=== PATIENT | male | born 1945 | race Caucasian/White ===

== ENCOUNTER → 2017-01-29 | Outpatient (CLI) | payer OTHER ==
[~2017-01-29] MED LIST: ASPUNK PO; BROM0.07 TOP; FLVUNK PO; GATI0.5S TOP; HYDUNK PO; LPTUNK PO; LSNUNK PO; METH2.5T PO; MULT-506 PO; PRLSRUNK PO
[2017-01-29 13:58] LABS: BLOOD UREA NITROGEN 16 mg/dl (7-18); CALCIUM 8.7 mg/dl (8.5-10.1); CARBON DIOXIDE 26 mmol/L (21-32); CHLORIDE 103 mmol/L (98-107); CREATININE 1.02 mg/dl (0.60-1.40); GLUCOSE 98 mg/dl (70-99); POTASSIUM 3.7 mmol/L (3.5-5.1); SODIUM 135 mmol/L (136-145)
--- NOTE | 2017-01-30 14:27 | CODING QUERY NO DIAGNOSIS ---
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 Please assist us with providing a diagnosis/symptom for the test(s) below: A diagnosis/symptom was not documented on your Order. A valid diagnosis/symptom is required to bill all insurances. Please remember that we are unable to code a diagnosis of rule out, probable, possible, questionable, or suspected. Tests that require a diagnosis: DOS: 01/29/17 * ACETYLCHOLINE REC (AChR) MOD AB DIAGNOSIS: * PARTIAL RENAL PROFILE DIAGNOSIS: * MYASTHENIA GRAVIS PANEL DIAGNOSIS: Provider Signature: Date: Thank you Sandra Masters Health Information Management Once completed, please kindly fax back to [phone] For questions please call [phone]
[2017-02-02 06:18] LABS: ACETYLCHOLINE RECEP MODULATING 18; ANTI-STRIATED MUSCLE NEGATIVE (NEGATIVE); RECEPTOR BINDING AB <0.30 nmol/L
== END | disposition home or self-care (01) ==
LOC: C.LABBC 10:24
PROVIDERS: ATTEND Ophthalmology
DX: H53.2 Diplopia (principal); G70.00 Myasthenia gravis without (acute) exacerbation

== ENCOUNTER → 2017-02-06 | Outpatient (CLI) | payer OTHER ==
[~2017-02-06] MED LIST changes: +GADAVIST IV PRN
--- NOTE | 2017-02-06 09:50 | DIAGNOSTIC IMAGING REPORT ---
ORBITS FOR MRI HISTORY: Pre-MRI pre-MRI screening. COMPARISON: None. FINDINGS: There are no radiopaque foreign bodies identified within the orbits. IMPRESSION: No radiopaque foreign bodies identified within the orbits. The above report was generated using voice recognition software. It may contain grammatical, syntax or spelling errors. Electronically signed by: Bubba Trevino M.D. 02/06/2017 9:49 AM Dictated Date/Time: 02/06/2017 9:48 AM
--- NOTE | 2017-02-06 10:42 | DIAGNOSTIC IMAGING REPORT ---
MRI OF THE BRAIN WITHOUT AND WITH IV CONTRAST CLINICAL HISTORY: 4TH NERVE PALSY COMPARISON STUDY: No previous studies for comparison. TECHNIQUE: MRI of the brain was performed from the vertex to the skull base utilizing various T1 and T2 weighted sequences. Following the IV administration of 9.5 mL of Gadavist contrast, additional enhanced images were obtained. FINDINGS: Sagittal T1, axial diffusion, proton density and T2 weighted axial, coronal FLAIR, and pre and post axial T1-weighted images were acquired. These were supplemented with post gadolinium coronal T1 weighted images. No intra or extra-axial mass lesions are visualized. Axial diffusion-weighted images reveal no evidence of acute or subacute infarction. There is no evidence of ventricular dilatation. Proton density T2-weighted and FLAIR images reveal a few scattered foci of increased T2 signal within the white matter, likely on a small vessel basis. There are no abnormal flow voids. There is a suspected subtle left frontal developmental venous anomaly. IMPRESSION: 1. No acute intracranial findings. No evidence of intracranial mass. No evidence of acute or subacute infarction. Electronically signed by: James Bolaños M.D. 02/06/2017 10:41 AM Dictated Date/Time: 02/06/2017 10:37 AM
== END | disposition home or self-care (01) ==
LOC: C.MRIBC 09:24
PROVIDERS: ATTEND Ophthalmology
DX: H49.10 Fourth [trochlear] nerve palsy, unspecified eye (principal); I10 Essential (primary) hypertension

== ENCOUNTER 2017-03-13 23:41 | Emergency (ER) | payer OTHER ==
[~2017-03-13] VITALS: Ht 172.7 cm; Wt 100.1 kg
[~2017-03-13 23:41] MED LIST changes: -GADAVIST IV PRN
[2017-03-14 00:13] VITALS: Ht 172.7 cm; Wt 100.1 kg
[2017-03-14] MEDS ORDERED: ACETAMINOPHEN 500 MG TAB PO ONE (00:18)
[2017-03-14] MEDS ORDERED: SODIUM CHLORIDE 0.9% 1000ML 1,000 ML IV STA (00:43)
[2017-03-14] MEDS ORDERED: KETOROLAC TROMETHAMINE 30 MG/ML VIAL IV STA (00:43)
--- NOTE | 2017-03-14 00:44 | EMERGENCY ROOM VISIT NOTE ---
History Report prepared by Gal: Slick Tony Under the Supervision of: Dr. Oliver Helton M.D. First contact with patient: 00:36 Chief Complaint: FEVER Stated Complaint: FLU,FEVER 103.8 History of Present Illness The patient is a 71 year old male who presents to the Emergency Room with complaints of a constant fever beginning 3 days ago. The patient states that his fever reached a high of 103.8. He notes that he received his flu shot this year. He also complains of nausea, constipation, a loss of appetite, sore throat , and lack of sleep. He reports that his stomach has not been feeling well for the last 3 days. The patient states that he took a Tylenol about 20 minutes ago with no relief of his symptoms. He denies any diarrhea, abdominal pain, runny nose, and known sick contacts. He notes that he has no history of asthma, diabetes, and heart problems. He reports that he has a history of stomach ulcers from many years ago. Source of History: patient Onset: 3 days ago Position: other (global) Symptom Intensity: 103.8 Quality: other (fever) Timing: constant Associated Symptoms: + sorethroat, + nausea, No abdominal pain, No diarrhea Note: He also complains of constipation, a loss of appetite, and a lack of sleep. He denies any runny nose. Review of Systems See HPI for pertinent positives & negatives. A total of 10 systems reviewed and were otherwise negative. Past Medical & Surgical Medical Problems: (1) Stomach ulcer (2) Stomach ulcer Family History No pertinent family history stated. Social History Smoking Status: Former Smoker Marital Status: Occupation Status: employed Current/Historical Medications Scheduled Aspirin (Aspirin Ec), 81 MG PO DAILY Atorvastatin (Lipitor), 20 MG PO DAILY Folic Acid (Folvite), 1 MG PO DAILY Hydrochlorothiazide (Hydrochlorothiazide), 12.5 TAB PO DAILY Lisinopril (Zestril), 5 MG PO DAILY Methotrexate (Methotrexate), 15 MG PO WK Multivitamin (Multivitamin), 1 TAB PO DAILY Omeprazole (Prilosec), 20 MG PO BID Oseltamivir Phosphate (Tamiflu), 1 CAP PO BID Allergies Coded Allergies: No Known Allergies (Unverified , 03/14/17) Physical Exam Vital Signs Date Time Temp Pulse Resp B/P (MAP) Pulse Ox O2 Delivery O2 Flow Rate FiO2 03/14/17 02:35 37.5 92 16 124/66 94 03/14/17 02:00 37.5 03/14/17 01:15 100 16 126/82 96 Room Air 03/14/17 00:13 38.9 124 20 124/74 93 Room Air Physical Exam GENERAL: Patient is uncomfortable appearing and in mild distress. HEENT: No acute trauma, normocephalic atraumatic, mucous membranes dry, no nasal congestion, no scleral icterus. Flushed face. Rhinorrhea bilaterally. Mild posterior pharyngeal erythema. NECK: No stridor, no adenopathy, no meningismus, trachea is midline. LUNGS: No dyspnea. Clear to auscultation and equal bilaterally. No wheeze, no rhonchi. HEART: Regular rhythm and tachycardic. No murmurs, rubs, gallops appreciated. ABDOMEN: Soft, nontender, bowel sounds positive, no masses appreciated, no peritonitis. BACK: No midline tenderness, no CVA tenderness EXTREMITIES: Normal motion all extremities, no cyanosis, no edema. NEUROLOGIC: Alert and oriented, no acute motor or sensory deficits, no focal weakness, cranial nerves grossly intact. SKIN: No rash, no jaundice, no diaphoresis. Medical Decision & Procedures ER Provider Diagnostic Interpretation: X ray results are stated below per my interpretation: Chest: 1 view: No infiltrate, no effusion, normal cardiac border. No perihilar inflammation. Laboratory Results 03/14/17 01:08 Red Blood Count 4.11, Mean Corpuscular Volume 95.6, Mean Corpuscular Hemoglobin 33.1, Mean Corpuscular Hemoglobin Concent 34.6, Mean Platelet Volume 9.6, Neutrophils (%) (Auto) 74.3, Lymphocytes (%) (Auto) 9.0, Monocytes (%) (Auto) 16.2, Eosinophils (%) (Auto) 0.0, Basophils (%) (Auto) 0.1, Neutrophils # (Auto ) 8.54, Lymphocytes # (Auto) 1.04, Monocytes # (Auto) 1.87, Eosinophils # (Auto ) 0.00, Basophils # (Auto) 0.01 03/14/17 01:08 Test 03/14/17 01:08 White Blood Count 11.51 K/uL (4.8-10.8) Red Blood Count 4.11 M/uL (4.7-6.1) Hemoglobin 13.6 g/dL (14.0-18.0) Hematocrit 39.3 % (42-52) Mean Corpuscular Volume 95.6 fL (80-100) Mean Corpuscular Hemoglobin 33.1 pg (25-34) Mean Corpuscular Hemoglobin Concent 34.6 g/dl (32-36) Platelet Count 201 K/uL (130-400) Mean Platelet Volume 9.6 fL (7.4-10.4) Neutrophils (%) (Auto) 74.3 % Lymphocytes (%) (Auto) 9.0 % Monocytes (%) (Auto) 16.2 % Eosinophils (%) (Auto) 0.0 % Basophils (%) (Auto) 0.1 % Neutrophils # (Auto) 8.54 K/uL (1.4-6.5) Lymphocytes # (Auto) 1.04 K/uL (1.2-3.4) Monocytes # (Auto) 1.87 K/uL (0.11-0.59) Eosinophils # (Auto) 0.00 K/uL (0-0.5) Basophils # (Auto) 0.01 K/uL (0-0.2) RDW Standard Deviation 47.9 fL (36.4-46.3) RDW Coefficient of Variation 13.8 % (11.5-14.5) Immature Granulocyte % (Auto) 0.4 % Immature Granulocyte # (Auto) 0.05 K/uL (0.00-0.02) Anion Gap 6.0 mmol/L (3-11) Est Creatinine Clear Calc Drug Dose 82.1 ml/min Estimated GFR () 92.4 Estimated GFR (Non- 79.8 BUN/Creatinine Ratio 16.4 (10-20) Calcium Level 8.6 mg/dl (8.5-10.1) Laboratory results as reviewed by me. Medications Administered Medications (Trade) Dose Ordered Sig/Chelly Route Start Time Stop Time Status Last Admin Dose Admin Acetaminophen (Tylenol Tab) 1,000 mg STK-MED ONCE PO 03/14/17 00:18 03/14/17 00:19 DC 03/14/17 00:21 1,000 MG Sodium Chloride 1,000 ml @ 999 mls/hr Q1H1M STAT IV 03/14/17 00:43 1/12/18 01:43 DC 03/14/17 01:14 999 MLS/HR Ketorolac Tromethamine (Toradol Inj) 10 mg NOW STAT IV 03/14/17 00:43 03/14/17 00:46 DC 03/14/17 01:13 10 MG Oseltamivir Phosphate (Tamiflu Cap) 75 mg NOW STAT PO 03/14/17 02:18 03/14/17 02:19 DC 03/14/17 02:28 75 MG ED Course 0038: The patient was evaluated in room C4. A complete history and physical exam was performed. 0217: I reevaluated and updated the patient. He is feeling better. His heart rate is 90 and his O2 saturation is 94%. I discussed treating him for influenza which he is comfortable with. 0230: Reevaluated the patient. Discussed results and discharge instructions: he verbalized understanding and agreement. The patient is ready for discharge. Medical Decision Differential: Viral, Pharyngitis, Pneumonia, Influenza, Meningitis, Sepsis, Bacteremia, amongst other pathologies entertained. 71 yr old male arrives with complaint of URI symptoms with cough and body aches. Currently flu is endemic to entire region with testing no longer indicated in case such as his which is clearly flu like. CXR clear though some perihilar abnormalities which I advised he follow up with PCP. Labs unremarkable. Abdomen soft, non-tender. HR much improved with temp and fluids. Breathing comfortably and looks well. No evidence sepsis/bacteremia at this time. Given age I feel treatment with Tamiflu reasonable despite fact we are getting just outside window start time. Reviewed symptoms requiring RTED. Advised follow up with PCP. Medication Reconcilliation Current Medication List: was personally reviewed by me Blood Pressure Screening Patient's blood pressure: Normal blood pressure Blood pressure disposition: Did not require urgent referral Impression Primary Impression: Influenza-like symptoms Additional Impressions: Fever Dehydration Scribe Attestation The scribe's documentation has been prepared under my direction and personally reviewed by me in its entirety. I confirm that the note above accurately reflects all work, treatment, procedures, and medical decision making performed by me. Departure Information Dispostion Home / Self-Care Prescriptions Oseltamivir Phosphate (Tamiflu) 75 Mg Cap 1 CAP PO BID for 5 Days, #10 CAP Prov: Oliver Helton M.D. 03/14/17 Referrals Davi Daniel M.D.(ADOLFO) (PCP) Forms HOME CARE DOCUMENTATION FORM, IMPORTANT VISIT INFORMATION Patient Instructions ED Flu, My [facility] Problem Qualifiers
[2017-03-14] MEDS ORDERED: ATOR-22 PO (01:05)
[2017-03-14] MEDS ORDERED: ASPI81TA28 PO (01:05)
[2017-03-14] MEDS ORDERED: FOLI1TAB8 PO (01:06)
[2017-03-14] MEDS ORDERED: HYDR12.55 PO (01:07)
[2017-03-14] MEDS ORDERED: LISI-729 PO (01:08)
[2017-03-14] MEDS ORDERED: PRLSR20 PO (01:11)
[2017-03-14 01:20] LABS: BASO % 0.1 %; BASO ABS # 0.01 K/uL (0-0.2); HEMATOCRIT 39.3 % (42-52); HEMOGLOBIN 13.6 g/dL (14.0-18.0); IG# 0.05 K/uL (0.00-0.02); LYMPH ABS # 1.04 K/uL (1.2-3.4); MEAN CELL VOLUME 95.6 fL (80-100); MEAN CORPUSCULAR HEMOGLOBIN 33.1 pg (25-34); MEAN CORPUSCULAR HGB CONC 34.6 g/dl (32-36); MEAN PLATELET VOLUME 9.6 fL (7.4-10.4); MONO % 16.2 %; MONO ABS # 1.87 K/uL (0.11-0.59); NEUT % 74.3 %; NEUT ABS # 8.54 K/uL (1.4-6.5); PLATELET COUNT 201 K/uL (130-400); RED CELL DISTRIBUTION WIDTH CV 13.8 % (11.5-14.5); RED CELL DISTRIBUTION WIDTH SD 47.9 fL (36.4-46.3); WHITE BLOOD COUNT 11.51 K/uL (4.8-10.8)
[2017-03-14 01:37] LABS: CALCIUM 8.6 mg/dl (8.5-10.1); CREATININE 0.96 mg/dl (0.60-1.40); POTASSIUM 3.7 mmol/L (3.5-5.1)
[2017-03-14] MEDS ORDERED: OSELTAMIVIR PHOSPHATE 75 MG CAP PO STA (02:18)
[2017-03-14] MEDS ORDERED: OSEL75CA23 PO (02:19)
[2017-03-14 02:35] VITALS: BP 124/66; PULSE 92; TEMP 37.5; O2SAT 94
--- NOTE | 2017-03-14 07:07 | DIAGNOSTIC IMAGING REPORT ---
CHEST ONE VIEW PORTABLE CLINICAL HISTORY: cough, fevers, chills COMPARISON STUDY: None FINDINGS: The heart is normal in size. There are left perihilar airspace opacities. There is left hilar enlargement. The findings could be secondary to either a pneumonia with reactive adenopathy, or a central mass. Repeat imaging subsequent antibiotic therapy, or CT scanning should be considered in follow-up. There are no pleural effusions.[ IMPRESSION: Abnormal chest x-ray with left perihilar airspace opacities at left hilar enlargement. Given history of cough fever and chills, this may be secondary to a pneumonia with reactive adenopathy. A central mass however cannot be excluded. Repeat imaging subsequent antibiotic therapy or CT scanning should be considered in follow-up. Electronically signed by: James Bolaños M.D. 03/14/2017 7:06 AM Dictated Date/Time: 03/14/2017 7:04 AM
== END 2017-03-14 02:30 | disposition home or self-care (01) ==
LOC: C.EDB 23:42 → C.EDC 03-14 02:30
DX: R11.0 Nausea (principal); J02.9 Acute pharyngitis, unspecified; R63.0 Anorexia; R50.9 Fever, unspecified; E86.0 Dehydration; K59.00 Constipation, unspecified; Z87.891 Personal history of nicotine dependence; Z79.82 Long term (current) use of aspirin